=== PATIENT | female | born 1985 | race Caucasian/White ===

== ENCOUNTER 2019-08-02 10:14 | Emergency (ER) | payer BC ==
--- NOTE | 2019-08-02 10:54 | ER Document Report ---
ED Medical Screen (RME) - General Chief Complaint: Hemorrhoids Stated Complaint: POSSIBLE HEMORRHOIDS Time Seen by Provider: 08/02/19 10:48 Primary Care Provider: [employer],EMPLOYEE [Primary Care Provider] - Follow up as needed Mode of Arrival: Ambulatory Information source: Patient Notes: 34-year-old female presents with rectal bleeding. Reports that she has been hav ing rectal bleeding for over 2 weeks. She was seen at [facility] this past weekend for the bleeding. Her hemoglobin was 4.3. She received 3 units of packed cells. She reports her hemoglobin returned to 7.11. She was evaluated by Dr. Montes today and sent over here for continued rectal bleeding. She reports blood only when she has a bowel movement. Denies fever vomiting diarrhea. She reports she has a rectal tear. I have greeted and performed a rapid initial assessment of this patient. A comprehensive ED assessment and evaluation of the patient, analysis of test results and completion of the medical decision making process will be conducted by additional ED providers. TRAVEL OUTSIDE OF THE [place] IN LAST 30 DAYS: No - Related Data Allergies/Adverse Reactions: No Known Allergies Allergy (Unverified 04/22/16 13:48) Physical Exam - Vital signs Vitals: Temp Pulse Resp BP Pulse Ox 98.1 F 98 18 131/77 H 100 08/02/19 10:33 08/02/19 10:33 08/02/19 10:33 08/02/19 10:33 08/02/19 10:33 Course - Vital Signs Vital signs: Temp Pulse Resp BP Pulse Ox 98.1 F 98 18 131/77 H 100 08/02/19 10:33 08/02/19 10:33 08/02/19 10:08/02/19 10:33 08/02/19 10:33 Doctor's Discharge - Discharge Referrals: HE[facility],EMPLOYEE [Primary Care Provider] - Follow up as needed
[2019-08-02 11:33] LABS: HEMATOCRIT 24.9 % (36.0-47.0); MEAN CORPUSCULAR HEMOGLOBIN 20.6 pg (27.0-33.4); MEAN CORPUSCULAR HGB CONC 31.1 g/dL (32.0-36.0); MEAN CORPUSCULAR VOLUME 66 fl (80-97); PLATELET COUNT 277 10^3/uL (150-450); RED BLOOD COUNT 3.75 10^6/uL (3.72-5.28); WHITE BLOOD COUNT 5.9 10^3/uL (4.0-10.5)
[2019-08-02 11:46] LABS: ALBUMIN 4.1 g/dL (3.5-5.0); ALKALINE PHOSPHATASE 39 U/L (38-126); ANION GAP 10 (5-19); ASPARTATE AMINO TRANSFERASE 15 U/L (14-36); BILIRUBIN,TOTAL 1.3 mg/dL (0.2-1.3); BLOOD UREA NITROGEN 10 mg/dL (7-20); CALCIUM 8.9 mg/dL (8.4-10.2); CARBON DIOXIDE 23 mmol/L (22-30); CHLORIDE 104 mmol/L (98-107); GLUCOSE 93 mg/dL (75-110); TOTAL PROTEIN 6.8 g/dL (6.3-8.2)
[2019-08-02 12:17] LABS: HEMOGLOBIN 7.7 g/dL (12.0-15.5)
[2019-08-02 12:20] LABS: ABSOLUTE LYMPHOCYTES# (MANUAL) 1.5 10^3/uL (0.5-4.7); ABSOLUTE MONOCYTES # (MANUAL) 0.2 10^3/uL (0.1-1.4); BAND NEUTROPHILS % (MANUAL) 1 % (3-5); BASOPHILS % (MANUAL) 1 % (0-2); EOSINOPHILS % (MANUAL) 0 % (0-6); LYMPHOCYTES % (MANUAL) 25 % (13-45); MONOCYTES % (MANUAL) 4 % (3-13); SEGMENTED NEUTROPHILS % (MAN) 69 % (42-78); TOTAL CELLS COUNTED 100
[2019-08-02 12:27] LABS: POLYCHROMASIA SLIGHT
[2019-08-02 12:28] LABS: ANISOCYTOSIS 4+; HYPOCHROMASIA 1+; PLATELET COMMENT ADEQUATE; POIKILOCYTOSIS 2+; TEAR DROP CELLS SLIGHT
--- NOTE | 2019-08-02 13:17 | ER Document Report ---
ED GI Bleed / Rectal Pain - General Chief Complaint: Rectal Bleeding Stated Complaint: POSSIBLE HEMORRHOIDS Time Seen by Provider: 08/02/19 11:27 Primary Care Provider: [facility] [Provider Group] - Follow up tomorrow [facility] [Provider Group] - Follow up in 3-5 days CALIXTO MENDOZA MD [Primary Care Provider] - Follow up as needed Mode of Arrival: Ambulatory Information source: Patient Notes: Patient states that she has had rectal bleeding when having bowel movements for the past 2 weeks. Patient states 4 days ago she went to the after having rectal bleeding and her hemoglobin had dropped to 4.3. Patient was transfused 3 units and her hemoglobin increased to 7.11 per the patient. Patient states today she had a bowel movement and did have some additional bleeding. Patient denies any active bleeding at this time. Patient did see her primary doctor for follow-up today and he spoke with a surgeon and advised her to come here for laboratory tests. Patient states that she does have chronic anemia due to heavy menstrual cycles. Patient denies any vaginal bleeding at this time. TRAVEL OUTSIDE OF THE [place] IN LAST 30 DAYS: No - HPI Patient complains to provider of: Hemorrhoids Onset: This morning Timing/Duration: Better Quality of pain: No pain Rectal bleeding: Blood streaks on stool Rectal foreign body: No Associated symptoms: Constipation, Hard stools. denies: Back pain, Abdominal pain, Bruising/bleeding gums Exacerbated by: Other - Bowel movements Relieved by: Denies Similar symptoms previously: Yes Recently seen / treated by doctor: Yes - Related Data Allergies/Adverse Reactions: No Known Allergies Allergy (Unverified 04/22/16 13:48) Past Medical History - General Information source: Patient - Social History Smoking Status: Never Smoker Chew tobacco use (# tins/day): No Frequency of alcohol use: wine everyday Drug Abuse: None Lives with: Family Family History: Reviewed & Not Pertinent Patient has suicidal ideation: No Patient has homicidal ideation: No - Medical History Medical History: Other - Anemia Renal/ Medical History: Reports: Other - Heavy menses Past Surgical History: Reports: Hx Section, Hx Gynecologic Surgery - Uterine ablation Review of Systems - Review of Systems Constitutional: No symptoms reported. denies: Fever EENT: No symptoms reported Cardiovascular: No symptoms reported. denies: Chest pain, Syncope, Dizziness, Lightheaded Respiratory: No symptoms reported. denies: Short of breath Gastrointestinal: Constipation, Blood streaked bowels. denies: Abdominal pain, Nausea, Vomiting Genitourinary: No symptoms reported. denies: Dysuria Female Genitourinary: No symptoms reported. denies: Vaginal discharge, Vaginal bleeding Musculoskeletal: No symptoms reported. denies: Back pain Skin: No symptoms reported Hematologic/Lymphatic: No symptoms reported Neurological/Psychological: No symptoms reported Physical Exam - Vital signs Vitals: Temp Pulse Resp BP Pulse Ox 98.1 F 98 18 131/77 H 100 08/02/19 10:33 08/02/19 10:33 08/02/19 10:33 08/02/19 10:33 08/02/19 10:33 - General General appearance: Appears well, Alert In distress: None - HEENT Head: Normocephalic, Atraumatic Eyes: Normal Nasal: Normal Mouth/Lips: Normal Mucous membranes: Normal Neck: Normal, Supple. No: Lymphadenopathy - Respiratory Respiratory status: No respiratory distress Chest status: Nontender Breath sounds: Normal. No: Rales, Rhonchi, Stridor, Wheezing Chest palpation: Normal - Cardiovascular Rhythm: Regular Heart sounds: S1 appreciated, S2 appreciated - Abdominal Inspection: Normal Distension: No distension Bowel sounds: Normal Tenderness: Nontender - Rectal Hemorrhoids: Internal. No: External, Mass Notes: RN Shelly as standby - Back Back: Normal, Nontender. No: CVA tenderness - Extremities General upper extremity: Normal inspection, Normal strength General lower extremity: Normal inspection, Normal strength - Neurological Neuro grossly intact: Yes Cognition: Normal Eddi Coma Scale Eye Opening: Spontaneous Eddi Coma Scale Verbal: Oriented Eddi Coma Scale Motor: Obeys Commands Eddi Coma Scale Total: 15 - Psychological Associated symptoms: Normal affect, Normal mood - Skin Skin Temperature: Warm Skin Moisture: Dry Skin Color: Pale Course - Re-evaluation Re-evalutation: 08/02/19 11:45 Spoke with patient's doctor office to determine whether they had sent patient here and what their plans were. Office staff states that the surgeon was to be contacted regarding patient's rectal bleeding. 08/02/19 13:12 Patient with a hemoglobin of 7.7 and hematocrit of 24.9. Patient states that when she was discharged from the over the weekend her hemoglobin was up to 7.11 after having 3 units transfused. Patient without any active bleeding. Patient without any pain symptoms. Patient with stable vital signs at this time. Patient denies any lightheadedness or dizziness. Call was placed to the general surgeon Dr. Mendoza regarding patient's presentation. Dr. Mendoza states that he will be happy to scope patient but that she would have to be admitted under medicine services. Patient presently does not want to be admitted and she would prefer to have this managed on an outpatient basis as she has children at home and her is currently deployed. Dr. Mendoza was advised that patient is not requesting admission at this time and states that he can do the study on an outpatient basis if that is patient's preference. Patient states that she was not advised that her primary doctor was willing to have her admitted when she came here. Patient thought she was just having outpatient lab work to get ready to have a colonoscopy performed on an outpatient basis. Patient states that her hemoglobin is actually pretty high today for her as she typically is anemic due to heavy vaginal bleeding. Patient states that she is currently still following up with her routing machine operator about her continued heavy menstrual bleeding which is the cause of her anemia. Patient without any vaginal bleeding at this time. Patient prefers to be discharged home and would like to see the surgeon on outpatient basis. Patient encouraged to return immediately if she becomes symptomatic, if she has return of the bleeding, feels lightheaded, dizzy has chest pain shortness of breath or any concerning new symptoms. 08/02/19 13:18 Patient was offered admission although declines at this time and prefers to follow-up on outpatient basis. - Vital Signs Vital signs: Temp Pulse Resp BP Pulse Ox 97.6 F 75 18 135/64 H 100 08/02/19 14:16 08/02/19 14:16 08/02/19 14:16 08/02/19 14:16 08/02/19 14:16 - Laboratory Result Diagrams: 08/02/19 11:12 08/02/19 11:12 Laboratory results interpreted by me: 08/02/19 08/02/19 11:12 11:12 Hgb 7.7 L Hct 24.9 L MCV 66 L MCH 20.6 L MCHC 31.1 L RDW 31.0 H Band Neutrophils % 1 L Creatinine 0.41 L 08/02/19 13:15 Labs- Entire Visit 08/02/19 08/02/19 08/02/19 11:12 11:12 11:12 WBC 5.9 RBC 3.75 Hgb 7.7 L Hct 24.9 L MCV 66 L MCH 20.6 L MCHC 31.1 L RDW 31.0 H Plt Count 277 Lymph % (Auto) Not Reportable Thayer % (Auto) Not Reportable Eos % (Auto) Not Reportable Baso % (Auto) Not Reportable Absolute Neuts (auto) Not Reportable Absolute Lymphs (auto) Not Reportable Absolute Monos (auto) Not Reportable Absolute Eos (auto) Not Reportable Absolute Basos (auto) Not Reportable Total Counted 100 Seg Neutrophils % Not Reportable Seg Neuts % (Manual) 69 Band Neutrophils % 1 L Lymphocytes % (Manual) 25 Monocytes % (Manual) 4 Eosinophils % (Manual) 0 Basophils % (Manual) 1 Abs Neuts (Manual) 4.1 Abs Lymphs (Manual) 1.5 Abs Monocytes (Manual) 0.2 Absolute Eos (Manual) 0.0 Abs Basophils (Manual) 0.1 Platelet Comment ADEQUATE Polychromasia SLIGHT Hypochromasia 1+ Poikilocytosis 2+ Anisocytosis 4+ Microcytosis 2+ Tear Drop Cells SLIGHT Sodium 137.4 Potassium 4.0 Chloride 104 Carbon Dioxide 23 Anion Gap 10 BUN 10 Creatinine 0.41 L Est GFR ( Amer) > 60 Est GFR (MDRD) Non-Af > 60 Glucose 93 Calcium 8.9 Total Bilirubin 1.3 Direct Bilirubin 0.0 Neonat Total Bilirubin Not Reportable Neonat Direct Bilirubin Not Reportable Neonat Indirect Bili Not Reportable AST 15 ALT 13 Alkaline Phosphatase 39 Total Protein 6.8 Albumin 4.1 Serum HCG, Qual Blood Type O POSITIVE Antibody Screen NEGATIVE 08/02/19 11:12 WBC RBC Hgb Hct MCV MCH MCHC RDW Plt Count Lymph % (Auto) Thayer % (Auto) Eos % (Auto) Baso % (Auto) Absolute Neuts (auto) Absolute Lymphs (auto) Absolute Monos (auto) Absolute Eos (auto) Absolute Basos (auto) Total Counted Seg Neutrophils % Seg Neuts % (Manual) Band Neutrophils % Lymphocytes % (Manual) Monocytes % (Manual) Eosinophils % (Manual) Basophils % (Manual) Abs Neuts (Manual) Abs Lymphs (Manual) Abs Monocytes (Manual) Absolute Eos (Manual) Abs Basophils (Manual) Platelet Comment Polychromasia Hypochromasia Poikilocytosis Anisocytosis Microcytosis Tear Drop Cells Sodium Potassium Chloride Carbon Dioxide Anion Gap BUN Creatinine Est GFR ( Amer) Est GFR (MDRD) Non-Af Glucose Calcium Total Bilirubin Direct Bilirubin Neonat Total Bilirubin Neonat Direct Bilirubin Neonat Indirect Bili AST ALT Alkaline Phosphatase Total Protein Albumin Serum HCG, Qual NEGATIVE Blood Type Antibody Screen Discharge - Discharge Clinical Impression: Internal hemorrhoids Anemia Qualifiers: Anemia type: unspecified type Qualified Code(s): D64.9 - Anemia, unspecified Condition: Stable Disposition: HOME, SELF-CARE Instructions: Anemia ([facility]), Rectal Bleeding, Unclear Cause ([facility]) Additional Instructions: Return immediately for any new or worsening symptoms: Lightheadedness, dizziness, chest pain, shortness of breath, rectal bleeding, or any concerning new symptoms Followup with your primary care provider, call tomorrow to make a followup appointment Follow-up with the [facility] for further evaluation of your rectal bleeding. Call today to make an outpatient follow-up appointment Follow up with your routing machine operator for further management of your heavy menstrual bleeding. Referrals: [facility] [Provider Group] - Follow up tomorrow [facility] [Provider Group] - Follow up in 3-5 days CALIXTO MENDOZA MD [Primary Care Provider] - Follow up as needed
[2019-08-02 14:17] VITALS: BP 135/64
== END 2019-08-02 14:16 | disposition home or self-care (01) ==
LOC: ER 10:14
DX: K64.8 Other hemorrhoids (principal); K59.00 Constipation, unspecified; K92.1 Melena; D50.0 Iron deficiency anemia secondary to blood loss (chronic)
CPT/HCPCS: 36415; 80053; 84703; 85025; 86850; 86900; 86901; 99283